=== PATIENT | male | born 1950 | race Caucasian/White ===

== ENCOUNTER → 2020-04-04 19:35 | Outpatient (ROUT) | payer MEDICARE, OTHER, SELFPAY ==
[2020-04-04 20:10] LABS: Add Manual Diff / Slide Review NO; Basophils Absolute Auto 0 /uL (0-100); Basophils Percent Auto 0.7 % (0-2); Eosinophils Absolute Auto 100 /uL (0-450); Eosinophils Percent Auto 1.6 % (2-4); Hematocrit 46.8 % (41-53); Hemoglobin 15.9 g/dL (13.5-17.5); Lymphocytes Absolute Auto 1700 /uL (1100-4500); Lymphocytes Percent Auto 29.7 % (25-40); Mean Corpuscular Hemoglobin 31.7 PG (26-34); Mean Corpuscular Volume 93.2 fL (80-100); Monocytes Absolute Auto 600 /uL (0-900); Monocytes Percent Auto 10.6 % (3-14); Neutrophils Absolute Auto 3300 /uL (1500-7000); Neutrophils Percent Auto 57.4 % (50-75); Platelet Count 189 X10^3/uL (150-400); Red Blood Cell Count 5.03 X10^6/uL (4.5-5.9); Red Cell Distribution Width 13.3 % (11.6-14.8); White Blood Cell Count 5.8 X10^3/uL (4.5-11.0)
[2020-04-04 20:16] LABS: HEMOLYSIS < 15 (0-50)
[2020-04-04 20:24] LABS: Aspartate Aminotransferase 28 IU/L (17-59); BUN Creatinine Ratio 16.7 (6-22); Blood Urea Nitrogen 16 mg/dL (9-20); Carbon Dioxide 27 mmol/L (22-32); Chloride 105 mmol/L (98-107); Cholesterol 186 mg/dL (140-199); Estimated Glomerular Filt Rate > 60.0 mL/min (>60); Glucose 96 mg/dL (80-110); HDL Cholesterol 43 mg/dL (40-60); LDL Cholesterol Calculated 93 mg/dL (<100); Potassium 4.3 mmol/L (3.4-5.1); Sodium 140 mmol/L (137-145); Triglycerides 252 mg/dL (35-150)
[2020-04-07 16:09] LABS: Prostate Specific Antigen 0.603 ng/mL (0.10-4.00)
== END ==
PROVIDERS: PCP Internal Medicine; Visit Provider Internal Medicine
DX: I26.99 Other pulmonary embolism without acute cor pulmonale (principal); I10 Essential (primary) hypertension; E78.2 Mixed hyperlipidemia; N40.0 Benign prostatic hyperplasia without lower urinary tract symptoms
CPT/HCPCS: 80048; 80061; 84153; 84443; 84450; 85025

== ENCOUNTER 2020-10-31 09:55 | Emergency (ER) | payer MEDICARE, OTHER, SELFPAY ==
[2020-10-31 09:55] VITALS: BP 125/67; PULSE 80; RESP 18; O2SAT 96; BMI 49.2
--- NOTE | 2020-10-31 10:00 | ED_ITS ---
HPI - General Adult General Chief complaint: Extremity Problem,Nontraumatic Stated complaint: May have bloodclot upper left leg, by hip Time Seen by Provider: 10/31/20 09:59 Source: patient Mode of arrival: Ambulatory Limitations: no limitations History of Present Illness HPI narrative: Patient is a 70-year-old male. Has a history of DVT/PE. Is on Coumadin. He states that about 3 weeks ago he did go 1 week without taking his Coumadin because he was out of town. When he returned home he started taking his medicine again and then when he checked his INR after 1 week of being on his normal dose it was 1.9. He is here for evaluation of discomfort to the outside of his left leg. He states that it does feel similar to his prior diagnosis of DVT. He is not having any chest pain or shortness of breath. No fevers. No headaches. No trauma. The discomfort to his left lower extremity is been going on for approximately 1 week. No urinary symptoms. No back pain. No changes in bowel habits. No skin rashes. Related Data Allergies Allergy/AdvReac Type Severity Reaction Status Date / Time No Known Drug Allergies Allergy Verified 10/31/20 10:08 Review of Systems Constitutional Constitutional: Denies fatigue and Denies headache(s) ENT Ears, Nose, Mouth, and Throat: Denies vertigo, Denies dizziness and Denies headache(s) Cardiovascular Cardiovascular: Denies chest pain and Denies dyspnea Respiratory Respiratory: Denies dyspnea Gastrointestinal Gastrointestinal: Denies abdominal pain, Denies nausea and Denies vomiting Genitourinary Genitourinary: Denies dysuria Genitourinary: Denies dysuria Musculoskeletal Comments: Left leg pain Integumentary/Breasts Skin/Breast: Denies lesions and Denies rash Neurologic Neurologic: Denies confusion, Denies vertigo, Denies dizziness and Denies headache(s) Psychiatric Psychiatric: Denies confusion Endocrine Endocrine: Denies fatigue Hematologic/Lymphatic On Anticoagulants: Yes Allergic/Immunologic Allergic/Immunologic: Denies urticaria Patient History Medical History DVT (deep venous thrombosis) Pulmonary embolism Social History Smoking Status: Former smoker Exam Initial Vital Signs Initial Vital Signs: Vital Signs Pulse Rate 80 10/31/20 09:55 Respiratory Rate 18 10/31/20 09:55 Blood Pressure 125/67 10/31/20 09:55 Pulse Oximetry 96 10/31/20 09:55 Const General: cooperative and comfortable Limitations: mental status not altered HENMT Head: normal to inspection and normocephalic Resp Effort & Inspection: normal respiratory effort Auscultation: clear to auscultation bilaterally Cardio Rate: regular rate Rhythm: regular rhythm GI Inspection: non-distended Palpation: soft Back/Spine/Pelvis Thoracic/Lumbar Spine: No lumbar spinal tenderness Skin Lesions: no lesions Rashes: no rashes Neuro General: patient alert, patient awake and patient oriented x3 Cognition: normal cognition Speech: speech normal Gait: normal gait Extrem General: normal to inspection and capillary refill normal Other: Patient with tenderness to palpation to the anterior lateral aspect of hi s left thigh. Cannot reproduce the tenderness to his left hip. He states that it is ?deep? and it is a ?ache? Psych Appearance: grossly normal and well kempt Course Orders Ordered: ED Orders 10/31/20 10:12 US periph venous low extrem lt Stat Vital Signs Vital signs: Vital Signs - 8 hr 10/31/20 09:55 10/31/20 10:25 10/31/20 10:30 Pulse Rate 80 73 74 Respiratory Rate 18 Blood Pressure 125/67 Pulse Oximetry 96 94 94 Medical Decision Making Imaging Data US - DVT: Radiologist's Impression: [address] [id number] ReportSigned Patient: Ruddy Parrish WMR#: [id number]: 1950Acct:[id number]/Sex: 70 / MDate of Service: 10/31/20Loc: EDAccession Number: [id number] Procedure: US periph venous low extrem lt Ordering Provider: Gal Calvillo D.O. PROCEDURE: US PERIPH VENOUS LOW EXTREM LT INDICATIONS: PAIN; HISTORY DVT TECHNIQUE: Real-time imaging, as well as color and pulse Doppler interrogation, were performed of the lower extremity deep veins from the inguinal ligament to the popliteal fossa. COMPARISON: None. FINDINGS: The common femoral, femoral and popliteal veins are normally compressible, and free of intraluminal thrombus. Color and pulse Doppler demonstrate normal phasic intraluminal flow. There is normal augmentation response to distal compression maneuver. IMPRESSION: No sonographic evidence of DVT. Dictated by: Sarmad Gonzalez M.D. on 10/31/2020 at 10:56 Approved by: Sarmad Gonzalez M.D. on 10/31/2020 at 10:56 [facility] Narrative Medical decision making narrative: He is neurovascular intact. Left lower extremity DVT ultrasound is unremarkable. I do suspect this is muscular. No further workup needed emergency department. He has not fallen on the area so I feel that we can hold on x-rays for now. He was given return precautions and follow-up instructions. He expressed understanding and agreement. Discharge Plan Departure Patient Disposition: Home Clinical Impression: Left thigh pain Instructions: DI for Leg Pain Activity Restrictions/Additional Instructions: I recommend you keep all of your scheduled medical appointments and continue to take all of your medications as directed. You can take Tylenol/ibuprofen for your discomfort. Also recommend light stretching. You can also try heat/ice. Return to the emergency department for any new or worsening symptoms Referrals: Sriram Bledsoe MD [Primary Care Provider] -
--- NOTE | 2020-10-31 10:12 | DI.US.S_ITS ---
PROCEDURE: US PERIPH VENOUS LOW EXTREM LT INDICATIONS: PAIN; HISTORY DVT TECHNIQUE: Real-time imaging, as well as color and pulse Doppler interrogation, were performed of the lower extremity deep veins from the inguinal ligament to the popliteal fossa. COMPARISON: None. FINDINGS: The common femoral, femoral and popliteal veins are normally compressible, and free of intraluminal thrombus. Color and pulse Doppler demonstrate normal phasic intraluminal flow. There is normal augmentation response to distal compression maneuver. IMPRESSION: No sonographic evidence of DVT. Dictated by: Saramd Gonzalez M.D. on 10/31/2020 at 10:56 Approved by: Sarmad Gonzalez M.D. on 10/31/2020 at 10:56
[2020-10-31 10:25] VITALS: PULSE 73; O2SAT 94
[2020-10-31 10:30] VITALS: PULSE 74; O2SAT 94
--- NOTE | 2020-10-31 11:22 | PC.NURSE ---
patient is a man with a history of PE and DVT. He presents to day with chronic left thigh pain that moved to his hip. He states the pain is worse at night while in bed and it causes him to constantly move. He states that the pain is on the lateral side of his leg and is relieved by walking around. He cannot take ibuprofen because hes on blood thinners, he said. His leg color is good with no signs of swelling, redness, heat, loss of sensation or decrease in mobility
[2020-10-31 11:41] VITALS: BP 134/73; PULSE 73; RESP 16; O2SAT 94
== END 2020-10-31 11:42 | disposition home or self-care (01) ==
PROVIDERS: Emergency Provider Emergency Medicine; PCP Internal Medicine; Referring Provider Emergency Medicine
DX: M79.652 Pain in left thigh (principal); Z79.01 Long term (current) use of anticoagulants
CPT/HCPCS: 93971; 99283

== ENCOUNTER → 2021-11-03 10:40 | Outpatient (CLI) | payer MEDICARE, OTHER, SELFPAY ==
[2021-11-03 12:11] LABS: Hematocrit 44.2 % (41-53); Mean Corpuscular HGB Conc 33.9 % (30-36); Mean Corpuscular Hemoglobin 31.2 PG (26-34); Mean Corpuscular Volume 91.9 fL (80-100); Platelet Count 199 X10^3/uL (150-400); Red Blood Cell Count 4.81 X10^6/uL (4.5-5.9); Red Cell Distribution Width 14.3 % (11.6-14.8); White Blood Cell Count 6.8 X10^3/uL (4.5-11.0)
[2021-11-03 12:24] LABS: Alanine Aminotransferase 27 IU/L (<50); Albumin Globulin Ratio 1.3 (1.0-2.8); Alkaline Phosphatase 62 U/L (38-126); Aspartate Aminotransferase 31 IU/L (17-59); BUN Creatinine Ratio 16.5 (6-22); Bilirubin Total 0.5 mg/dL (0.2-1.3); Blood Urea Nitrogen 16 mg/dL (9-20); Calcium 8.7 mg/dL (8.4-10.2); Carbon Dioxide 27 mmol/L (22-32); Chloride 106 mmol/L (98-107); Cholesterol 201 mg/dL (140-199); Estimated Glomerular Filt Rate > 60 mL/min (>60); Globulin 3.1 g/dL (1.7-4.1); Glucose 95 mg/dL (80-110); HDL Cholesterol 37 mg/dL (40-60); HEMOLYSIS < 15 (0-50); Potassium 4.2 mmol/L (3.4-5.1); Sodium 139 mmol/L (137-145); Total Protein 7.1 g/dL (6.3-8.2); Triglycerides 417 mg/dL (35-150)
[2021-11-03 12:53] LABS: Prostate Specific Antigen 1.76 ng/mL (0.10-4.00)
[2021-11-03 12:56] LABS: TSH w/ Reflex to FT4 2.64 uIU/mL (0.47-4.68)
== END ==
PROVIDERS: PCP Internal Medicine; Referring Provider Internal Medicine; Visit Provider Internal Medicine
DX: E78.2 Mixed hyperlipidemia (principal); I10 Essential (primary) hypertension; N40.0 Benign prostatic hyperplasia without lower urinary tract symptoms; Z79.01 Long term (current) use of anticoagulants; Z86.711 Personal history of pulmonary embolism
CPT/HCPCS: 36415; 80053; 80061; 84153; 84443; 85027

== ENCOUNTER → 2022-06-18 08:56 | Outpatient (CLI) | payer MEDICARE, OTHER, SELFPAY ==
[2022-06-18 10:59] LABS: COVID19 -Nasal RAPID Negative (Negative)
== END ==
PROVIDERS: PCP Internal Medicine; Visit Provider Surgery
DX: Z01.812 Encounter for preprocedural laboratory examination (principal); Z20.822 Contact with and (suspected) exposure to COVID-19
CPT/HCPCS: 87635; C9803

== ENCOUNTER 2022-06-19 08:13 | Day surgery (SDC) | payer MEDICARE, OTHER, SELFPAY ==
[2022-06-19 08:44] VITALS: BMI 47.5
[2022-06-19 08:52] VITALS: BP 158/84; PULSE 91; RESP 20; TEMP 36.1; O2SAT 97
[2022-06-19] MEDS: LACTATED RINGERS 1,000 ML 200 ML IV (08:55)
--- NOTE | 2022-06-19 09:19 | PM.HP.1 ---
History of Present Illness History of Present Illness Date Patient Seen: 06/19/22 Time Patient Seen: 09:19 Chief complaint: SCREENING COLONOSCOPY Narrative: The patient presents for colorectal screening. He is a personal history of colonic polyps, last colonoscopy approximately 8 years ago.. No personal or family history of colon cancer. On further history denies any recent gastrointestinal symptoms. No nausea, vomiting, abdominal pain, loss of appetite, unexplained weight loss, change in bowel habits, diarrhea, constipation, melena, hematochezia, or bright red blood per rectum. Patient History Medical History Advanced directives, counseling/discussion Chronic anticoagulation DVT (deep venous thrombosis) Essential hypertension History of pulmonary embolism Medicare annual wellness visit, initial Mixed hyperlipidemia Pulmonary embolism Severe obesity Family & Social History Social History: household members other Tobacco & Substance use: Smoking Status Former smoker alcohol intake frequency a few times a week Substance Use Type does not use Meds Home Medications and Allergies Home Medications Medication Instructions Recorded Confirmed Type ramipril 5 mg capsule 5 mg PO DAILY #90 caps 05/03/22 06/19/22 Rx simvastatin 40 mg tablet 40 mg PO DAILY #90 tabs 05/03/22 06/19/22 Rx warfarin 5 mg tablet 5 mg PO DAILY #90 tabs 05/03/22 06/19/22 Rx Allergies Allergy/AdvReac Type Severity Reaction Status Date / Time No Known Drug Allergies Allergy Verified 05/03/22 08:58 Exam Vital Signs (past 8 hours): - 06/19/22 08:52 Temperature 96.9 F L Pulse Rate 91 H Respiratory Rate 20 Blood Pressure 158/84 H Pulse Oximetry 97 Oxygen Delivery Method Room Air Oxygen Delivery Method Room Air Narrative Exam Narrative: General adult man alert oriented no acute distress, morbidly obese Chest nonlabored respiration Assessment & Plan Assessment and plan (1) Personal history of colonic polyps: Status: Acute Assessment & Plan narrative: The patient requires colorectal screening and colonoscopy is recommended. Technical details were discussed. Risks, benefits, alternatives explained. Risks including but not limited to myocardial infarction, aspiration, bleeding, pain, missed lesion, incomplete examination, need for further radiographic studies, colonic perforation, and need for major abdominal surgery were discussed. All questions were answered to their satisfaction, and they are in agreement with this plan. Time Spent With Patient Critical Care time: I spent a total of [] minutes of critical care time on this patient's care today; this time is exclusive of procedural time.
--- NOTE | 2022-06-19 09:32 | PM.OP.COLON ---
Operative Date/Time/Diagnoses Date of procedure: 06/19/22 Time of procedure: 09:32 Pre-op diagnosis: Personal history of colonic polyps Post-op diagnosis: same Procedure & Clinicians Study performed: Colonoscopy aborted Same procedure as scheduled: Yes Indications: Personal history of colonic polyps Surgeon: Horace Quevedo Procedure Notes Procedure in detail: The history and physical was performed/updated and the patient is ASA class is 3. The procedure was discussed in detail with the patient. Potential risks complications including infection, bleeding, missed diagnosis, perforation, need for surgery, and were explained. Their questions were answered and informed consent was obtained. Patient was brought to the procedure room and placed standard monitoring equipment. The patient's vital signs were monitored continuously throughout the entire procedure. Prior to starting time-out was performed. The patient was placed in the left lateral recumbent position. Procedural sedation was administered by anesthesia. Examination began with a thorough inspection of the perianal area there was no evidence of fissures, fistulae, external hemorrhoids or cutaneous malignancy. The colonoscopy scope was then placed into the anal canal and was advanced forward. The quality of the preparation was quite poor there was solid stool within the colon and despite irrigation visualization was not adequate to exclude malignancy. Procedure was aborted Post-procedure Plan for aftercare: Schedule colonoscopy with alternative prep Disposition: same day surgery
[2022-06-19 09:39] VITALS: BP 121/80; PULSE 73; RESP 12; TEMP 36.8; O2SAT 93
[2022-06-19 09:44] VITALS: BP 124/79; PULSE 80; RESP 14; O2SAT 94
[2022-06-19 09:48] VITALS: BP 133/90; PULSE 70; RESP 15; O2SAT 95
[2022-06-19 09:54] VITALS: BP 137/88; PULSE 68; RESP 15; TEMP 36.5; O2SAT 94
[2022-06-19 09:55] VITALS: BP 135/87; PULSE 70; RESP 13; TEMP 36.4; O2SAT 93
== END 2022-06-19 10:34 | disposition home or self-care (01) ==
PROVIDERS: PCP Internal Medicine; Referring Provider Surgery; Visit Provider Surgery
PROC: 0DJD8ZZ Inspection of Lower Intestinal Tract, Via Natural or Artificial Opening Endoscopic (ICD-10-PCS; CPT 45378; principal; 2022-06-19 09:15)
DX: Z12.11 Encounter for screening for malignant neoplasm of colon (principal); Z86.010 Personal history of colon polyps; Z53.09 Procedure and treatment not carried out because of other contraindication
CPT/HCPCS: G0121; J2704; J3010

== ENCOUNTER → 2022-07-30 10:41 | Outpatient (CLI) | payer MEDICARE, OTHER, SELFPAY ==
[2022-07-30 14:31] LABS: COVID19 -Nasal RAPID Negative (Negative)
== END ==
PROVIDERS: PCP Internal Medicine; Visit Provider Surgery
DX: Z20.822 Contact with and (suspected) exposure to COVID-19 (principal); Z01.812 Encounter for preprocedural laboratory examination
CPT/HCPCS: 87635; C9803

== ENCOUNTER 2022-07-31 14:05 | Day surgery (SDC) | payer MEDICARE, OTHER, SELFPAY ==
--- NOTE | 2022-07-31 | PATH_ITS ---
[facility] Accession Number: [id number] No. of containers..01 Tissue . 01 Material submitted: . cecum - CECUM . 01 Diagnosis: Cecum, Biopsy: Inflammatory polyp. Negative for dysplasia or malignancy. [facility] 08/03/2022 1055 Local . 01 Electronically signed: . Lorene Alejandro MD, Pathologist NPI- [id number] . 01 Gross description: . CECUM: Received in formalin is 1 fragment(s) of pope, soft tissue measuring 0.3 x 0.2 x 0.2 cm submitted entirely in 1 cassette(s) /CPE 08/01/2022 0644 Local . 01 Pathologist provided ICD-10: K63.5 . 01 CPT . 525457 Specimen Comment: A courtesy copy of this report has been sent to [phone] Performed at: 01 [facility] [address] [place] [address], [place], [place] [id number] MD Dino Mccallum MD Phone: [phone]
[2022-07-31 14:51] VITALS: BMI 47.5
[2022-07-31 14:56] VITALS: BP 152/84; PULSE 84; RESP 16; TEMP 36.6; O2SAT 95
[2022-07-31] MEDS: LACTATED RINGERS 1,000 ML 42 ML IV (14:58)
--- NOTE | 2022-07-31 15:41 | PM.HP.1 ---
History of Present Illness History of Present Illness Date Patient Seen: 07/31/22 Time Patient Seen: 15:41 Chief complaint: SCREENING COLONOSCOPY Narrative: The patient presents for colorectal screening. Personal history of colonic polyps last colonoscopy was 8 years ago.. No personal or family history of colon cancer. On further history denies any recent gastrointestinal symptoms. No nausea, vomiting, abdominal pain, loss of appetite, unexplained weight loss, change in bowel habits, or blood per rectum. Patient History Medical History Advanced directives, counseling/discussion Chronic anticoagulation DVT (deep venous thrombosis) Essential hypertension History of pulmonary embolism Medicare annual wellness visit, initial Mixed hyperlipidemia Pulmonary embolism Severe obesity Family & Social History Social History: household members family Tobacco & Substance use: Smoking Status Former smoker alcohol intake current alcohol intake frequency a few times a week Substance Use Type does not use Meds Home Medications and Allergies Home Medications Medication Instructions Recorded Confirmed Type simvastatin 40 mg tablet 40 mg PO DAILY #90 tabs 05/03/22 07/31/22 Rx warfarin 5 mg tablet 5 mg PO DAILY #90 tabs 06/26/22 07/31/22 Rx ramipril 5 mg capsule 5 mg PO DAILY #90 caps 07/26/22 07/31/22 Rx Allergies Allergy/AdvReac Type Severity Reaction Status Date / Time No Known Drug Allergies Allergy Verified 07/31/22 08:43 Exam Vital Signs (past 8 hours): - 07/31/22 14:56 Temperature 97.9 F Pulse Rate 84 Respiratory Rate 16 Blood Pressure 152/84 H Pulse Oximetry 95 Oxygen Delivery Method Room Air Oxygen Delivery Method Room Air Narrative Exam Narrative: General adult man alert oriented no acute distress Assessment & Plan Assessment & Plan narrative: The patient requires colorectal screening and colonoscopy is recommended. Technical details were discussed. Risks, benefits, alternatives explained. Risks including but not limited to myocardial infarction, aspiration, bleeding, pain, missed lesion, incomplete examination, need for further radiographic studies, colonic perforation, and need for major abdominal surgery were discussed. All questions were answered to their satisfaction, and they are in agreement with this plan. Time Spent With Patient Critical Care time: I spent a total of [] minutes of critical care time on this patient's care today; this time is exclusive of procedural time.
[2022-07-31 16:43] VITALS: BP 135/84; PULSE 70; RESP 17; TEMP 36.2; O2SAT 97
--- NOTE | 2022-07-31 16:46 | PM.OP.COLON ---
Operative Date/Time/Diagnoses Date of procedure: 07/31/22 Time of procedure: 16:46 Pre-op diagnosis: Colorectal screening Post-op diagnosis: same Procedure & Clinicians Study performed: Colonoscopy Same procedure as scheduled: Yes Indications: Colorectal screening Surgeon: Horace Quevedo Procedure Notes Procedure in detail: The history and physical was performed/updated and the patient is ASA class is 3. The procedure was discussed in detail with the patient. Potential risks complications including infection, bleeding, missed diagnosis, perforation, need for surgery, and were explained. Their questions were answered and informed consent was obtained. Patient was brought to the procedure room and placed standard monitoring equipment. The patient's vital signs were monitored continuously throughout the entire procedure. Prior to starting time-out was performed. The patient was placed in the left lateral recumbent position. Procedural sedation was administered by anesthesia. Examination began with a thorough inspection of the perianal area there was no evidence of fissures, fistulae, external hemorrhoids or cutaneous malignancy. The colonoscopy scope was then placed into the anal canal and was advanced to the cecum, which was identified by the ileocecal valve, the appendiceal orifice and the confluence of the taenia. The scope was then slowly withdrawn examining colon thoroughly in all directions, irrigating it of any residual stool. FINDINGS 1. Cecum-3 mm polyp removed with biopsy forceps 2. Echeverria diverticulosis The patient tolerated the procedure well. They will be discharged once criteria are met. The prep was of fair quality. The withdrawl time was 7 minutes. Specimen(s): other (Cecal polyp) Complications: none Impression: Colonic polyp Post-procedure Recommendations: High fiber diet Plan for aftercare: Follow-up based on pathology findings Disposition: same day surgery
[2022-07-31 16:48] VITALS: BP 150/99; PULSE 72; RESP 11; O2SAT 96
[2022-07-31 16:52] VITALS: BP 150/100; PULSE 70; RESP 11; O2SAT 96
== END 2022-07-31 17:15 | disposition home or self-care (01) ==
PROVIDERS: PCP Internal Medicine; Referring Provider Surgery; Visit Provider Surgery
PROC: 0DJD8ZZ Inspection of Lower Intestinal Tract, Via Natural or Artificial Opening Endoscopic (ICD-10-PCS; CPT 45378; principal; 2022-07-31 15:15)
DX: Z12.11 Encounter for screening for malignant neoplasm of colon (principal); Z86.010 Personal history of colon polyps; K57.30 Diverticulosis of large intestine without perforation or abscess without bleeding; K63.5 Polyp of colon
CPT/HCPCS: 45380; J2704

== ENCOUNTER → 2023-05-09 08:56 | Outpatient (CLI) | payer MEDICARE, OTHER, SELFPAY ==
[2023-05-09 11:01] LABS: Hematocrit 45.2 % (41-53); Hemoglobin 15.3 g/dL (13.5-17.5); Mean Corpuscular HGB Conc 33.9 % (30-36); Mean Corpuscular Hemoglobin 31.7 PG (26-34); Mean Corpuscular Volume 93.7 fL (80-100); Platelet Count 184 X10^3/uL (150-400); Red Blood Cell Count 4.83 X10^6/uL (4.5-5.9); Red Cell Distribution Width 14.3 % (11.6-14.8); White Blood Cell Count 7.1 X10^3/uL (4.5-11.0)
[2023-05-09 11:25] LABS: Alanine Aminotransferase 24 IU/L (<50); Albumin Globulin Ratio 1.4 (1.0-2.8); Alkaline Phosphatase 59 U/L (38-126); Aspartate Aminotransferase 27 IU/L (17-59); BUN Creatinine Ratio 17.4 (6-22); Bilirubin Total 0.4 mg/dL (0.2-1.3); Blood Urea Nitrogen 16 mg/dL (9-20); Calcium 9.2 mg/dL (8.4-10.2); Carbon Dioxide 28 mmol/L (22-32); Chloride 104 mmol/L (98-107); Cholesterol 211 mg/dL (140-199); Estimated Glomerular Filt Rate > 60 mL/min (>60); Globulin 2.9 g/dL (1.7-4.1); Glucose 106 mg/dL (80-110); HDL Cholesterol 45 mg/dL (40-60); HEMOLYSIS 17 (0-50); LDL Cholesterol Calculated 115 mg/dL (<100); Potassium 4.1 mmol/L (3.4-5.1); Sodium 138 mmol/L (137-145); Total Protein 6.9 g/dL (6.3-8.2); Triglycerides 254 mg/dL (35-150)
[2023-05-09 11:52] LABS: Prostate Specific Antigen 2.31 ng/mL (0.10-4.00)
== END ==
PROVIDERS: PCP Internal Medicine; Referring Provider Internal Medicine; Visit Provider Internal Medicine
DX: E78.2 Mixed hyperlipidemia (principal); N40.0 Benign prostatic hyperplasia without lower urinary tract symptoms; Z86.711 Personal history of pulmonary embolism
CPT/HCPCS: 36415; 80053; 80061; 84153; 85027

== ENCOUNTER → 2023-10-08 10:38 | Outpatient (CLI) | payer MEDICARE, SELFPAY ==
[2023-10-08 11:03] LABS: Hematocrit 44.3 % (41-53); Hemoglobin 15.2 g/dL (13.5-17.5); Mean Corpuscular HGB Conc 34.3 % (30-36); Mean Corpuscular Volume 93.3 fL (80-100); Platelet Count 191 X10^3/uL (150-400); Red Blood Cell Count 4.74 X10^6/uL (4.5-5.9); Red Cell Distribution Width 14.1 % (11.6-14.8); White Blood Cell Count 6.5 X10^3/uL (4.5-11.0)
[2023-10-08 11:24] LABS: D Dimer 224 ng/ml (<500)
[2023-10-08 11:29] LABS: Alanine Aminotransferase 34 IU/L (<50); Albumin Globulin Ratio 1.3 (1.0-2.8); Alkaline Phosphatase 63 U/L (38-126); Aspartate Aminotransferase 29 IU/L (17-59); BUN Creatinine Ratio 20.2 (6-22); Bilirubin Total 0.6 mg/dL (0.2-1.3); Blood Urea Nitrogen 18 mg/dL (9-20); Carbon Dioxide 22 mmol/L (22-32); Chloride 108 mmol/L (98-107); Estimated Glomerular Filt Rate > 60 mL/min (>60); Globulin 3.1 g/dL (1.7-4.1); Glucose 106 mg/dL (80-110); HEMOLYSIS < 15 (0-50); Potassium 4.2 mmol/L (3.4-5.1); Sodium 138 mmol/L (137-145); Total Protein 7.1 g/dL (6.3-8.2)
[2023-10-08 11:37] LABS: NT-proBNP (BNP-Adult 18+) 20 pg/mL (<125)
[2023-10-08 12:05] LABS: TSH w/ Reflex to FT4 2.15 uIU/mL (0.47-4.68)
== END ==
PROVIDERS: PCP Internal Medicine; Referring Provider Internal Medicine; Visit Provider Internal Medicine
DX: R06.09 Other forms of dyspnea (principal); I50.9 Heart failure, unspecified; Z86.711 Personal history of pulmonary embolism
CPT/HCPCS: 36415; 80053; 83880; 84443; 85027; 85379

== ENCOUNTER → 2024-05-12 08:34 | Outpatient (CLI) | payer MEDICARE, SELFPAY ==
[2024-05-12 10:35] LABS: Aspartate Aminotransferase 34 IU/L (17-59); BUN Creatinine Ratio 14.9 (6-22); Blood Urea Nitrogen 14 mg/dL (9-20); Calcium 9.4 mg/dL (8.4-10.2); Carbon Dioxide 25 mmol/L (22-32); Chloride 105 mmol/L (98-107); Cholesterol 167 mg/dL (140-199); Estimated Glomerular Filt Rate > 60 mL/min (>60); Glucose 122 mg/dL (80-110); HDL Cholesterol 37 mg/dL (40-60); LDL Cholesterol Calculated 78 mg/dL (<100); Potassium 4.5 mmol/L (3.4-5.1); Sodium 138 mmol/L (137-145); Triglycerides 260 mg/dL (35-150)
[2024-05-12 10:39] LABS: HEMOLYSIS 100 (0-50)
[2024-05-12 11:06] LABS: Prostate Specific Antigen 0.777 ng/mL (0.10-4.00)
== END ==
PROVIDERS: PCP Internal Medicine; Referring Provider Internal Medicine; Visit Provider Internal Medicine
DX: E78.2 Mixed hyperlipidemia (principal); N40.1 Benign prostatic hyperplasia with lower urinary tract symptoms; I10 Essential (primary) hypertension; N13.8 Other obstructive and reflux uropathy; R06.09 Other forms of dyspnea; Z86.711 Personal history of pulmonary embolism; Z79.01 Long term (current) use of anticoagulants; E66.01 Morbid (severe) obesity due to excess calories
CPT/HCPCS: 36415; 80048; 80061; 84153; 84450

== ENCOUNTER → 2024-11-10 08:37 | Outpatient (CLI) | payer MEDICARE, SELFPAY ==
[2024-11-10 09:18] LABS: Hematocrit 45.2 % (41-53); Hemoglobin 15.5 g/dL (13.5-17.5); Mean Corpuscular HGB Conc 34.3 % (30-36); Mean Corpuscular Hemoglobin 32.9 PG (26-34); Mean Corpuscular Volume 95.8 fL (80-100); Platelet Count 215 X10^3/uL (150-400); Red Blood Cell Count 4.72 X10^6/uL (4.5-5.9); Red Cell Distribution Width 13.5 % (11.6-14.8); White Blood Cell Count 7.1 X10^3/uL (4.5-11.0)
[2024-11-10 09:44] LABS: Alanine Aminotransferase 30 IU/L (<50); Albumin 4.1 g/dL (3.5-5.0); Albumin Globulin Ratio 1.6 (1.0-2.8); Alkaline Phosphatase 73 U/L (38-126); Aspartate Aminotransferase 28 IU/L (17-59); BUN Creatinine Ratio 16.5 (6-22); Bilirubin Total 0.5 mg/dL (0.2-1.3); Blood Urea Nitrogen 14 mg/dL (9-20); Calcium 9.1 mg/dL (8.4-10.2); Carbon Dioxide 26 mmol/L (22-32); Chloride 102 mmol/L (98-107); Estimated Glomerular Filt Rate > 60 mL/min (>60); Globulin 2.6 g/dL (1.7-4.1); Glucose 133 mg/dL (70-99); HEMOLYSIS < 15 (0-50); Potassium 4.5 mmol/L (3.4-5.1); Sodium 137 mmol/L (137-145); Total Protein 6.7 g/dL (6.3-8.2)
== END ==
PROVIDERS: PCP Internal Medicine; Referring Provider Internal Medicine; Visit Provider Internal Medicine
DX: Z79.01 Long term (current) use of anticoagulants (principal); R73.01 Impaired fasting glucose; Z86.711 Personal history of pulmonary embolism
CPT/HCPCS: 36415; 80053; 83036; 85027